=== PATIENT | male | born 1970 | race Caucasian/White ===

== ENCOUNTER 2017-10-27 10:11 | Emergency (ER) | payer OTHER ==
[~2017-10-27] VITALS: Ht 188 cm; Wt 108.1 kg
[2017-10-27] MEDS ORDERED: DAYLIQ3 PO (10:49)
[2017-10-27] MEDS ORDERED: DAY1CAP PO (10:49)
[2017-10-27] MEDS ORDERED: TYLE500T78 PO (10:49)
--- NOTE | 2017-10-27 12:42 | REP ---
Clinical: Pain and swelling . Technique: Lema scale and color Doppler evaluation using linear high frequency transducer. Findings: Ultrasound examination of the left lower extremity deep venous structures from the common femoral vein to the popliteal vein demonstrates normal compressibility flow and wave patterns in response to respiration and augmentation. There is no evidence for deep venous thrombosis. Impression: No evidence for deep venous thrombosis left lower extremity. Signed by Je Alejandro MD 10/27/2017 12:33 P
[2017-10-27 13:22] VITALS: BP 111/72
== END 2017-10-27 13:24 | disposition home or self-care (01) ==
LOC: M ED 10:11
DX: M79.662 Pain in left lower leg (principal)